=== PATIENT | female | born 1945 | race Caucasian/White ===

== ENCOUNTER 2017-04-14 07:00 | Emergency (ER) | payer MEDICARE, OTHER ==
[~2017-04-14] VITALS: Ht 157.5 cm; Wt 105.0 kg
[2017-04-14 07:02] VITALS: BP 139/77; PULSE 127; RESP 20; TEMP 99.1; O2SAT 96
[2017-04-14 07:49] VITALS: BP 132/63; PULSE 100; RESP 17; TEMP 98.6; O2SAT 96
[2017-04-14] MEDS ORDERED: TACR1CAP PO (08:04)
[2017-04-14] MEDS ORDERED: ZOFR4TAB PO (08:04)
[2017-04-14] MEDS ORDERED: D 50CAP2 PO (08:04)
[2017-04-14] MEDS ORDERED: MAGN64 PO (08:04)
[2017-04-14] MEDS ORDERED: APIX5TAB PO (08:04)
[2017-04-14] MEDS ORDERED: FLUD.1 PO (08:04)
[2017-04-14] MEDS ORDERED: METO1TAB9 PO (08:04)
[2017-04-14] MEDS ORDERED: SPIRCAP INH (08:04)
[2017-04-14] MEDS ORDERED: DILT0.05 PO (08:04)
[2017-04-14] MEDS ORDERED: CALC8.5C CHEW (08:04)
[2017-04-14] MEDS ORDERED: FENT25DI T-DERMAL (08:04)
[2017-04-14] MEDS ORDERED: ALEN1TAB48 PO (08:04)
--- NOTE | 2017-04-14 08:28 | PD ---
HPI Chief Complaint: Complaint Time Seen by Provider: 08:00 Travel History International Travel<30 days: No Contact w/Intl Traveler<30days: No Traveled to known affect area: No History of Present Illness HPI Patient is a 71-year-old female presents emergency department with dysuria burning on urination dribbling urine and urinary frequency for the past 2 days. She is currently visiting from [place] on a tour bus, she had some Keflex left over from her previous urinary tract infection because her physician prescribed her extra because he knew she would need it. She otherwise feels well, no generalized symptoms, no body aches no chest pain no shortness of breath no fevers no cough no congestion. She is taking some Pyridium and this is made her symptoms better. Symptoms have been gradually worsening PFSH Past Medical History Hx Anticoagulant Therapy: Yes (Eliquis, AFIB) Atrial Fibrillation: Yes Cardiovascular Problems: Yes (a.FIB) COPD: Yes Diminished Hearing: No Medical other: Yes (LIVER CANCER WITH LIVER TRANSPLANT 2012) Tetanus Vaccination: > 5 Years Influenza Vaccination: No ?: Not Social History Alcohol Use: No Tobacco Use: No Substance Use: No Allergies-Medications (Allergen,Severity, Reaction): Coded Allergies: Penicillins (Verified Allergy, Unknown, Anaphylaxis, 04/14/17) Sulfa (Sulfonamide Antibiotics) (Verified Allergy, Unknown, Nausea/ Vomiting, 04/14/17) acetaminophen (Verified Allergy, Unknown, Nausea/Vomiting, 04/14/17) hydrocodone (Verified Allergy, Unknown, Nausea/Vomiting, 04/14/17) hydromorphone (Verified Allergy, Unknown, Nausea/Vomiting, 04/14/17) metronidazole (Verified Allergy, Unknown, Nausea/Vomiting, 04/14/17) morphine (Verified Allergy, Unknown, Nausea/Vomiting, 04/14/17) nitrofurantoin (Verified Allergy, Unknown, Nausea/Vomiting, 04/14/17) pentamidine isethionate (Verified Allergy, Unknown, Tachycardia, 04/14/17) sulfamethoxazole (Verified Allergy, Unknown, Nausea/Vomiting, 04/14/17) trimethoprim (Verified Allergy, Unknown, Nausea/Vomiting, 04/14/17) Reported Meds & Prescriptions Reported Meds & Active Scripts Active Keflex (Cephalexin) 500 Mg Capsule 500 Mg PO Q6H 7 Days Reported Zofran (Ondansetron HCl) 4 Mg Tab 4 Mg PO Q8HR PRN Viactiv (Calcium-Vitamins D & K) 500-500-40 Mg-Unit-Mcg Chew 1 Ea CHEW Spiriva Handihaler (Tiotropium Inh) 18 Mcg Cap 18 Mcg INH DAILY 1 capsule = 18 mcg Metoprolol Succinate ER 24 HR (Metoprolol Succinate) 50 Mg Tab 50 Mg PO DAILY Mag64 (Magnesium Chloride) 64 Mg Tab 64 Mg PO BID Fludrocortisone (Fludrocortisone Acetate) 0.1 Mg Tab 0.1 Mg PO DAILY Fentanyl Patch 72 HR (Fentanyl) 25 Mcg/Hr Patch 25 Mcg T-DERMAL Q72H Eliquis (Apixaban) 5 Mg Tab 5 Mg PO BID Diltiazem ER 24 HR 180 Mg Cornelio 180 Mg PO DAILY D3 Maximum Strength (Cholecalciferol) 5,000 Unit Cap 5,000 Units PO DAILY Alendronate (Alendronate Sodium) 70 Mg Tab 70 Mg PO Q7D Tacrolimus 1 Mg Cap 1 Mg PO Q12H Take 2mg in the morning and 1mg nightly Review of Systems Except as stated in HPI: all other systems reviewed are Neg Physical Exam Narrative GENERAL: Well-developed, obese but in no obvious distress. SKIN: Focused skin assessment warm/dry. HEAD: Atraumatic. Normocephalic. EYES: Pupils equal and round. No scleral icterus. No injection or drainage. ENT: No nasal bleeding or discharge. Mucous membranes pink and moist. NECK: Trachea midline. No JVD. CARDIOVASCULAR: Regular rate and rhythm. No murmur appreciated. RESPIRATORY: No accessory muscle use. Clear to auscultation. Breath sounds equal bilaterally. GASTROINTESTINAL: Abdomen soft, non-tender, nondistended. Hepatic and splenic margins not palpable. MUSCULOSKELETAL: No obvious deformities. No clubbing. No cyanosis. No edema. NEUROLOGICAL: Awake and alert. No obvious cranial nerve deficits. Motor grossly within normal limits. Normal speech. PSYCHIATRIC: Appropriate mood and affect; insight and judgment normal. Data Data Last Documented VS Vital Signs Date Time Temp Pulse Resp B/P (MAP) Pulse Ox O2 Delivery O2 Flow Rate FiO2 04/14/17 08:56 04/14/17 07:49 98.6 100 17 96 04/14/17 07:02 Room Air Orders Orders Urinalysis - C+S If Indicated (04/14/17 07:16) Urine Culture (04/14/17 07:44) Ed Discharge Order (04/14/17 08:39) Labs Laboratory Tests Test 04/14/17 07:44 Urine Color ORANGE Urine Turbidity HAZY Urine pH 5.5 Urine Specific [place] 1.019 Urine Protein TRACE mg/dL Urine Glucose (UA) NEG mg/dL Urine Ketones NEG mg/dL Urine Occult Blood SMALL Urine Nitrite POS Urine Bilirubin NEG Urine Urobilinogen 4.0 MG/DL Urine Leukocyte Esterase LARGE Urine RBC 8 /hpf Urine WBC 50 /hpf Urine WBC Clumps RARE Urine Squamous Epithelial Cells 30 /hpf Urine Transitional Epithelial Cells <1 /hpf Urine Bacteria OCC /hpf Urine Hyaline Casts 3 /lpf Microscopic Urinalysis Comment CULTURE INDICATED MDM Medical Decision Making Medical Screen Exam Complete: Yes Emergency Medical Condition: Yes Differential Diagnosis UTI, sepsis unlikely, cystitis, pyelonephritis Narrative Course Patient roomed in the emergency department, she is already been taking some Keflex at home, she has some evidence for urinary tract infection on UA. Will place on a course of Keflex discussed with her taking only antibiotics until gone, discussed return to ED criteria and follow-up with primary physician she is stable for discharge Diagnosis Primary Impression: UTI (urinary tract infection) Med/Other Pt SpecificInfo: Prescription(s) given Scripts Cephalexin (Keflex) 500 Mg Capsule 500 MG PO Q6H for Infection for 7 Days, #28 CAP 0 Refills Prov: Aubrey Saravia MD 04/14/17 Disposition: 01 DISCHARGE HOME Condition: Stable Aubrey Saravia MD Apr 14, 2017 08:28
[2017-04-14 08:31] LABS: BACTERIA, URINE OCC /hpf; BILIRUBIN, URINE NEG (NEG); BLOOD, URINE SMALL (NEG); GLUCOSE,URINE NEG (NEG); HYALINE CAST, URINE 3 /lpf (RARE); KETONE, URINE NEG (NEG); NITRITE,URINE POS (NEG); PH, URINE 5.5 (5.0-8.5); SQUAMOUS EPITHELIAL CELL URINE 30 /hpf (0-5); TRANSITIONAL EPI CELLS, URINE <1 /hpf; URINE COLOR ORANGE (YELLW/STRAW); URINE LEUKOCYTE ESTERASE LARGE (NEG); WHITE BLOOD CELL CLUMPS RARE
[2017-04-14] MEDS ORDERED: CEPH-460 PO (08:38)
== END 2017-04-14 09:00 | disposition home or self-care (01) ==
LOC: NEPC 07:00
DX: N39.0 Urinary tract infection, site not specified (principal); I48.91 Unspecified atrial fibrillation; Z79.01 Long term (current) use of anticoagulants
CPT/HCPCS: 81001; 87086; 99283